=== PATIENT | female | born 1985 | race Caucasian/White ===

== ENCOUNTER 2018-11-24 10:28 | Day surgery (SDC) | payer MEDICAID ==
[2018-11-24] MEDS ORDERED: SOD CHLORIDE 0.9% 1,000 ML IV (11:30)
[2018-11-24] MEDS ORDERED: CEFAZOLIN 1 GM/50 ML (PMX) 50 ML IVPB (13:00)
[2018-11-24] MEDS ORDERED: HYDROmorphONE 1 MG/5 ML IV SYRINGE IV ×2 (13:30)
[2018-11-24] MEDS ORDERED: ONDANSETRON 4 MG INJ (13:34)
[2018-11-24] MEDS ORDERED: PROPOFOL 20 ML (13:34)
[2018-11-24] MEDS ORDERED: MIDAZOLAM 1 MG/ML 2 ML INJ (13:34)
[2018-11-24] MEDS ORDERED: FENTAnyl 50 MCG/ML VIAL (13:34)
[2018-11-24] MEDS ORDERED: CEFAZOLIN 1 GM INJ (13:34)
[2018-11-24] MEDS ORDERED: ROCURONIUM 50 MG INJ (13:34)
[2018-11-24] MEDS ORDERED: LIDOCAINE 2% (SDV) 5 ML INJ (13:34)
[2018-11-24] MEDS: BUPIVACAINE 0.5% (SDV) 30 ML INJ (14:00)
[2018-11-24] MEDS ORDERED: SUGAMMADEX SODIUM 200 MG/2 ML VIAL IV (14:07)
== END 2018-11-24 16:30 | disposition home or self-care (01) ==
LOC: SDS 10:28
DX: D24.2 Benign neoplasm of left breast (principal)
CPT/HCPCS: 19120; 84703; 88307